=== PATIENT | female | born 1980 | race Caucasian/White ===

== ENCOUNTER 2022-05-10 12:00 | Emergency (ER) | payer BC, SELFPAY ==
[2022-05-10 12:13] VITALS: BP 133/63; PULSE 64; RESP 14; TEMP 36.8; O2SAT 100; BMI 23.1
--- NOTE | 2022-05-10 13:49 | ED.ANIMALBIT ---
HPI - Animal Bite <AMANDA Rodgers - Last Filed: 05/10/22 14:17> General Chief Complaint: Animal Bite Stated Complaint: Cat Bite, Rt Wrist Time Seen by Provider: 05/10/22 13:48 Source: patient Mode of arrival: Ambulatory History of Present Illness HPI narrative: 41-year-old nonsmoker female presents to the emergency department with right wrist redness, warmth and swelling x2 days. Patient reports that she was bitten by her cat early Friday a.m. and [facility] day. Patient reports that she had a x-ray that was negative, tetanus was up-to-date, and placed on oral Augmentin times 10 days. Patient reports that the site has worsened and therefore went to the walk-in clinic at [place] that we x-rayed her hand and then directed her to come straight to the emergency room for IV antibiotics. Related Data Allergies Allergy/AdvReac Type Severity Reaction Status Date / Time No Known Drug Allergies Allergy Verified 05/10/22 12:13 Review of Systems <AMANDA Rodgers - Last Filed: 05/10/22 14:17> Review of Systems Narrative: Narrative: GENERAL: Denies chills, fatigue, fever, sweats. HEENT: Denies sinus pain, ear pain, sore throat, difficulty swallowing, dizziness. RESPIRATORY: Denies dyspnea, cough, wheezing, sputum. CARDIOVASCULAR: Denies chest pain, palpitations, edema. GASTROINTESTINAL: Denies nausea, vomiting, abdominal pain, diarrhea, constipation. : Denies dysuria, frequency, incontinence, hematuria, urinary retention, flank pain. MUSCULOSKELETAL: denies weakness, joint pain, or bony pain. SKIN: Denies rash or pruritis. NEUROLOGIC: Denies weakness, dizziness, headache, numbness. PSYCHIATRIC: No concerning psychosocial issues. Patient History <AMANDA Rodgers - Last Filed: 05/10/22 14:17> Social History Smoking Status: Unknown if ever smoked Smoking Status: Unknown if ever smoked alcohol intake frequency: holidays/special occasions only Substance Use Type: does not use Exam <AMANDA Rodgers - Last Filed: 05/10/22 14:17> Narrative Exam Narrative: Exam Narrative: GENERAL: This is a well-nourished, well-developed patient, in no acute distress HEAD: Atraumatic. Normocephalic. EYES: Pupils equal round and reactive. Extraocular motions intact. No injection or drainage. ENT: Nose without bleeding, purulent drainage. Airway patent. NECK: Trachea midline. No JVD or lymphadenopathy. Supple and nontender. CARDIOVASCULAR: Regular rate and rhythm, peripheral pulses intact, cap refill <2 sec. RESPIRATORY: Breath sounds equal and clear bilaterally. No wheezes, rales, or rhonchi. No cough. No increased respiratory effort. No accessory muscle use. GASTROINTESTINAL: Abdomen soft, non-tender, nondistended without guarding or rebound. No suprapubic pain. No hepato-splenomegaly, or palpable masses. EXTREMITIES: Normal range of motion, no clubbing or edema. Neurovascularly intact. NEURO: A&O x 3. SKIN: Right wrist is red, warm and swollen. Visible puncture wounds from cat bite on right wrist. Initial Vital Signs Initial Vital Signs: Vital Signs Temperature 98.3 F 05/10/22 12:13 Pulse Rate 64 05/10/22 12:13 Respiratory Rate 14 05/10/22 12:13 Blood Pressure 133/63 05/10/22 12:13 Pulse Oximetry 100 05/10/22 12:13 Oxygen Delivery Method 05/10/22 12:13 Reviewed <Stephanie Salazar DO - Last Filed: 05/13/22 10:08> Initial Vital Signs Initial Vital Signs: Vital Signs Temperature 98.3 F 05/10/22 12:13 Pulse Rate 64 05/10/22 12:13 Respiratory Rate 14 05/10/22 12:13 Blood Pressure 133/63 05/10/22 12:13 Pulse Oximetry 100 05/10/22 12:13 Oxygen Delivery Method 05/10/22 12:13 Course <AMANDA Rodgers - Last Filed: 05/10/22 14:17> Vital Signs Vital signs: Vital Signs - 8 hr 05/10/22 12:13 Temperature 98.3 F Pulse Rate 64 Respiratory Rate 14 Blood Pressure 133/63 Pulse Oximetry 100 Oxygen Delivery Method Room Air <Stephanie Salazar DO - Last Filed: 05/13/22 10:08> Vital Signs Vital signs: Vital Signs - 8 hr 05/10/22 12:13 Temperature 98.3 F Pulse Rate 64 Respiratory Rate 14 Blood Pressure 133/63 Pulse Oximetry 100 Oxygen Delivery Method Room Air MDM - Animal Bite <AMANDA Rodgers - Last Filed: 05/10/22 14:17> Differential Diagnosis Differential diagnosis: Likely cat bite MDM Narrative Medical decision making narrative: 41-year-old female with cat bite presents to the emergency department. Right wrist is red, warm and swollen, and worse according to patient. No red streaking, purulent drainage, fever or signs of worsening infection. Consulted Dr. Salazar. Discussed plan of care with patient to include a lot of warm compresses, ibuprofen and acetaminophen and continuance of antibiotics. Discussed return precautions. Patient was agreeable with course of action. Discharge Plan Departure Patient Disposition: Home Clinical Impression: Cat bite Instructions: DI for Animal Bites Activity Restrictions/Additional Instructions: *You have been diagnosed with cellulitis of right wrist secondary to a cat bite. Continue taking the antibiotics as prescribed. You may start taking ibuprofen 600 mg every 6 hours, and may combine with acetaminophen 1000 mg every 6 hours. Give it through the weekend to see if symptoms improve. If at point you see red streaking up the arm, pus-like drainage, are very hot, bright red and worsening swelling, please return to the emergency department immediately. Otherwise, follow up with your family doctor as needed. *What to do: *Please continue to take your regular medications as directed. [ ] New medication prescriptions sent to your pharmacy: [ ] [ ] New medication written as a paper prescription [x ] No new medications given *Please follow up with your primary care provider in 2-3 days, call for an appointment. Let them know you were seen in the Emergency Department and that we ask that you be seen in follow up. We will electronically transmit a record of today's note if your PCP is in our system *If you do not have a primary care provider please contact the [facility] Resource line at [phone]. They will ask some questions about your medical history and help get you set up with a doctor in the community. ? Return to ER if you should have any new, worsening or concerning symptoms, such as worsening pain, severe headache, confusion, chest pain, difficulty breathing, fever greater than 101 F, shaking chills, persistent vomiting to the point that you cannot drink fluids, or other new or worsening symptoms. Referrals: Eskes,Poly C, [employer] [Primary Care Provider] - Visit Report Forms: Patient Portal/API <Stephanie Marie - Last Filed: 05/13/22 10:08> Cosign ED Attending Prashantature Attestation: I saw and evaluated patient myself. She does have some swelling of her hand but no erythema no streaking no fluctuation. Recommend continuation of antibiotics and close monitoring. She already had an x-ray which was negative for doing to her. I was immediately available in the department for consultation. Documentation has been reviewed. I agree with assessment and plan.
== END 2022-05-10 14:24 | disposition home or self-care (01) ==
PROVIDERS: Emergency Provider Registered Nurse; PCP Nurse Practitioner
DX: S61.551A Open bite of right wrist, initial encounter (principal); W55.01XA Bitten by cat, initial encounter
CPT/HCPCS: 99281